=== PATIENT | male | born 1980 | race American Indian/Alaskan Native ===

== ENCOUNTER 2019-06-19 16:02 | Emergency (ER) | payer SELFPAY ==
[2019-06-19 16:14] VITALS: BP 173/98
--- NOTE | 2019-06-19 16:15 | Event Note ---
ED Screening Note Date of service: 06/19/19 Time: 16:10 ED Screening Note: This is a 38 y.o. M. that presents to the ER with swelling of hands bilaterally for 2 weeks. Denies Injury PMH of HTN This initial assessment/diagnostic orders/clinical plan/treatment(s) is/are subject to change based on patients health status, clinical progression and re- assessment by fellow clinical providers in the ED. Further treatment and workup at subsequent clinical providers discretion. Patient/guardian urged not to elope from the ED as their condition may be serious if not clinically assessed and managed. Initial orders include:
--- NOTE | 2019-06-19 17:10 | Emergency Department Report ---
ED Back Pain/Injury HPI - General Chief Complaint: Extremity Problem,Nontraumatic Stated Complaint: SWELLING/SORENESS HANDS/PAIN Time Seen by Provider: 06/19/19 16:08 Source: patient Limitations: No Limitations - History of Present Illness Initial Comments: 38 YO MALE COMES TO ER WITH 2 W HISTORY OF HAND SWELLING ONLY DURING THE WEEK WHEN HE WORKS HIS NEW JOB AT [employer]. NO LEG SWELLING. NO SOB. NO CP. HERE FOR DOCUMENTATION, PER PT, HE HAS CALLED OFF WORK THE LAST 2 DAYS - Related Data Allergies Allergy/AdvReac Type Severity Reaction Status Date / Time No Known Allergies Allergy Unverified 06/19/19 16:09 ED Review of Systems ROS: Stated complaint: SWELLING/SORENESS HANDS/PAIN Other details as noted in HPI Comment: All other systems reviewed and negative ED Past Medical Hx - Past Medical History Medical history: hypertension OBESE ED Back Pain Physical Exam - Exam General: Vital signs noted. No distress. Alert and acting appropriately. Back/Abdomen: No Abdominal Tenderness, No Perithoracic Tenderness, No Perilumbar Tenderness, No Sacroiliac Tenderness, No Flank Tenderness, No Straight Leg Raise Pain Neuro: Yes Normal Sensation, Yes Normal DTR's, Yes Normal Gait, No Motor Weakness ED Course Vital Signs 06/19/19 06/19/19 16:08 16:14 Temperature 97.8 F Pulse Rate 77 Respiratory 20 Rate Blood Pressure 191/107 173/98 [Left] O2 Sat by Pulse 99 Oximetry ED Medical Decision Making - Medical Decision Making NO TRAUMA STARTED NEW JOB 2 W AGO AND HANDS HURT NEURO VASC INTACT NO SWELLING ON EXAM DC HOME WITH PCP FOLLOW UP Vital Signs 06/19/19 06/19/19 16:08 16:14 Temperature 97.8 F Pulse Rate 77 Respiratory 20 Rate Blood Pressure 191/107 173/98 [Left] O2 Sat by Pulse 99 Oximetry - Differential Diagnosis MALINGERING Critical care attestation.: If time is entered above; I have spent that time in minutes in the direct care of this critically ill patient, excluding procedure time. ED Disposition Clinical Impression: Hand pain Disposition: DC-01 TO HOME OR SELFCARE Is pt being admited?: No Does the pt Need Aspirin: No Condition: Stable Additional Instructions: FOLLOW UP WITH PCP MOTRIN OR TYLENOL FOR PAIN CONTINUE BP MEDS CONTINUE TO WORK ON HAND STRENGTH WE DISCUSSED DRINK PLENTY OF WATER Time of Disposition: 17:09
== END 2019-06-19 17:15 | disposition home or self-care (01) ==
LOC: ED 16:02
DX: M79.642 Pain in left hand (principal); M79.641 Pain in right hand
CPT/HCPCS: 99282